=== PATIENT | male | born 1970 | race African-American/Black ===

== ENCOUNTER 2022-07-13 16:31 | Emergency (ER) | payer MEDICARE ==
[~2022-07-13] VITALS: Ht 167.6 cm; Wt 76.2 kg
[2022-07-13 16:34] VITALS: BP 145/77
[2022-07-13 17:26] LABS: BASOPHILS % (AUTO) 0.6 % (0.0-5.0); EOSINOPHILS % (AUTO) 5.2 % (0.0-8.0); HEMATOCRIT 38.4 % (42-54); MEAN CORPUSCULAR HEMOGLOBIN 28.5 pg (27.0-33.0); MEAN CORPUSCULAR HGB CONC 33.1 g/dL (32.0-36.0); MEAN CORPUSCULAR VOLUME 86.1 fL (79-99); MONOCYTES % (AUTO) 6.5 % (3.0-13.0); NEUTROPHILS % (AUTO) 62.2 % (40.0-77.0); PLATELET COUNT (AUTO) 194 K/uL (130-400); RED BLOOD CELL COUNT(AUTO) 4.46 MIL/uL (4.50-6.20); RED CELL DISTRIBUTION WIDTH 14.2 % (11.0-15.5)
[2022-07-13 18:10] LABS: ALBUMIN 3.3 g/dL (3.5-5.0); TOTAL PROTEIN, SERUM 6.3 g/dL (6.0-8.3)
[2022-07-13 18:19] LABS: CREATININE 1.5 mg/dL (0.5-1.5)
[2022-07-13] MEDS ORDERED: INSU100I22 SQ (19:42)
[2022-07-13] MEDS ORDERED: METF-444 PO (19:42)
[2022-07-13] MEDS ORDERED: GLYB5TAB8 PO (19:42)
== END 2022-07-13 19:56 | disposition home or self-care (01) ==
LOC: EDH 16:31
DX: E11.65 Type 2 diabetes mellitus with hyperglycemia (principal); I10 Essential (primary) hypertension; E78.00 Pure hypercholesterolemia, unspecified; M19.90 Unspecified osteoarthritis, unspecified site; Z88.0 Allergy status to penicillin; Z88.5 Allergy status to narcotic agent
CPT/HCPCS: 36415; 80053; 82948; 85025